=== PATIENT | male | born 1970 | race Caucasian/White ===

== ENCOUNTER 2021-09-17 07:16 | Day surgery (SDC) | payer OTHER ==
[~2021-09-17] VITALS: Ht 177.8 cm; Wt 68.0 kg
[2021-09-17] MEDS ORDERED: NS IRRIG SOLN 1000 ML IR ONE (09:00)
[2021-09-17] MEDS ORDERED: ARTICAINE HCL/EPINEPHRINE 4%/1:200,000 BIT 1.7 ML CARTRIDGE IJ ONE (09:00)
[2021-09-17] MEDS ORDERED: BENZOCAINE 20% GEL 32 GM BOTTLE MM ONE (09:00)
[2021-09-17] MEDS ORDERED: NS 250 ML BAG IV ONE (09:00)
[2021-09-17 12:42] VITALS: BP_SYST 104
== END 2021-09-17 09:55 | disposition home or self-care (01) ==
LOC: SDS 07:16 → SMU 07:31 → SDS 09:55
PROVIDERS: ATTEND Dentist General Practice
DX: M27.2 Inflammatory conditions of jaws (principal); K05.5 Other periodontal diseases; M89.8X0 Other specified disorders of bone, multiple sites; M26.603 Bilateral temporomandibular joint disorder, unspecified; J01.01 Acute recurrent maxillary sinusitis; K05.222 Aggressive periodontitis, generalized, moderate; K08.421 Partial loss of teeth due to periodontal diseases, class I; F20.9 Schizophrenia, unspecified; G40.909 Epilepsy, unspecified, not intractable, without status epilepticus; F17.210 Nicotine dependence, cigarettes, uncomplicated; J45.909 Unspecified asthma, uncomplicated; E11.9 Type 2 diabetes mellitus without complications; G47.33 Obstructive sleep apnea (adult) (pediatric); I25.2 Old myocardial infarction; Z79.899 Other long term (current) drug therapy; Z20.822 Contact with and (suspected) exposure to COVID-19
CPT/HCPCS: 21025; 21215; 21248; 36415; 70140; 87426; C1713; J7050